=== PATIENT | female | born 1935 | race Caucasian/White ===

== ENCOUNTER 2017-07-23 16:00 | Inpatient (IN) | payer MEDICARE, BC ==
[~2017-07-23] VITALS: Ht 158.8 cm; Wt 53.0 kg
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
--- NOTE | ~2017-07-23 | CO ---
Unit #: [id number] #: [id number] Patient: DESIREE SILVA [id number] [address] [address] [id number] I MR#: [id number] NAME: DESIREE SILVA. ROOM: 306 Age: 82 Sex: F Admission Date: 07/26/2017 : 1935 Attending Physician: Rosalina Hamlin M.D. Primary Care Physician: Kaveh Diallo M.D. Consultation Date: 07/27/2017 CONSULTATION REPORT REASON FOR CONSULTATION Followup. DISCUSSION Ms. Desiree Silva is an 82-year-old white female, seen in room 306, bed 1 on 07/27/2017. The patient dressed casually in hospital attire, lying comfortably in bed. The patient was somewhat anxious and nervous, but reports feeling much better with medication. The patient making progress. Denied any thoughts of harming self or others. Tolerating medication fairly well. The patient's vital signs; temperature 98.4, blood pressure 130/80, respirations 12, oxygen saturation 99%. REVIEW OF SYSTEMS Complete review of systems unremarkable. MENTAL STATUS EXAMINATION General appearance; the patient dressed casually, thin built. Attention span and concentration, fair. Speech, regular rate. Oriented in time, place, and person. Mood and affect, labile. Thought process, coherent. Thought content, the patient denied any thoughts of harming self or others or any agitation or any hallucination. Recent and remote memory, fair to slightly impaired. Language, fair. Fund of knowledge, fair. Insight and judgment, fair to slightly impaired. DIAGNOSES Psychiatric: Major neurocognitive disorder secondary to Alzheimer disease with behavioral disturbances, F02.81; major depressive disorder, recurrent, severe, F33.2; anxiety disorder, not otherwise specified, F40.01. ASSESSMENT AND PLAN 1. Supportive psychotherapy and psychoeducation provided to the patient. 2. Educated about benefits and side effects of medication and course and prognosis of illness. 3. Advised to continue with current medication. If needed, consider further adjustment of medication. Please feel free to call if any questions telephone #[phone]. Dictated by... Colt Rawls M.D. CARLOS MANUEL/isamar Unit #: [id number] #: [id number] Patient: DESIREE SILVA E TD: 07/28/2017 18:55 JOB #: [id number] CONSULTATION REPORT Page 1 of 1 X Colt Rawls MD CONSULTATION REPORT
--- NOTE | ~2017-07-23 | CT71 ---
[facility] A Service of [facility] RADIOLOGY TEXT RESULTS PATIENT: DESIREE SILVA LOCATION: [facility] 306- : [birth year] UNIT #: [id number] AGE: [address]: Rosalina Hamlin MD SEX: F ORDER DR: [id number] [facility] [address] [facility]. [place], [place] [address] [id number] I MR#: [id number] Acc #: [id number] NAME: DESIREE SILVA. : 1935 SEX: F STUDY DATE/TIME: 07/24/2017 13:14 UNIT: [address] ROOM: [facility] STUDY DESCRIPTION: CT Head Wo Contrast Attending Physician: Rosalina Hamlin M.D. Ordering Physician: Lam Goldsmith M.D. Primary Care Physician: Kaveh Diallo M.D. MEDICAL IMAGING REPORT This report is preliminary unless electronic signature is present EXAM CT head without contrast 07/24/2017 HISTORY 82-year-old female with headache and dizziness beginning today. COMPARISON None. TECHNIQUE Routine unenhanced axial images performed through the brain. This CT exam was performed with one or more of the following radiation dose reduction techniques: Automatic exposure control, adjustment of mA and/or kV according to patient size, and iterative reconstruction. FINDINGS No hemorrhage, acute infarction, mass lesion, or abnormal extraaxial fluid collection. No midline shift or focal mass effect. Ventricular system is normal in size and configuration. Remote right frontal lobe encephalomalacia. Mild chronic small vessel disease in the supratentorial white matter. No acute bony abnormality. Mild mucosal thickening right maxillary sinus. Visualized mastoid air cells are clear. IMPRESSION 1. No acute intracranial abnormality. 2. Remote right frontal lobe infarct and mild chronic small vessel disease. 3. Mild mucosal thickening right maxillary sinus. Dictated by... Dimitrios Loving M.D. [facility] A Service of [facility] RADIOLOGY TEXT RESULTS PATIENT: DESIREE SILVA LOCATION: [facility] 306- : 33 UNIT #: [id number] AGE: [address]: Rosalina Hamlin MD SEX: F ORDER DR: THIS IS AN ELECTRONICALLY VERIFIED REPORT Dimitrios Loving M.D. at 07/25/2017 10:38 AM NONA/phill TD: 07/25/2017 08:09 JOB #: [id number] MEDICAL IMAGING REPORT Page 1 of 1 COPY
--- NOTE | ~2017-07-23 | TH ---
Unit #: [id number] #: [id number] Patient: DESIREE SILVA [id number] [facility]. [address] [address] [id number] I MR#: [id number] NAME: DESIREE SILVA : 1935 SEX: F STUDY DATE/TIME: 07/25/2017 UNIT: C3A PCU ROOM: 306 STUDY DESCRIPTION: Attending Physician: Rosalina Hamlin M.D. Primary Care Physician: Kaveh Diallo M.D. CARDIOLOGY REPORT EXAM Lexiscan Cardiolite stress test, nuclear portion. PROCEDURE Using technetium 99m labeled Cardiolite, rest images were obtained. Next, 10.9 mCi of Cardiolite was injected. Images were obtained in horizontal and vertical long axis and short axis views. The stress portion of the test was canceled. The rest images showed normal perfusion. CONCLUSION 1. This is an incomplete stress test. 2. Stress portion of the test was canceled. 3. The rest images show normal perfusion. Dictated by... Xin Price TD: 07/25/2017 17:23 JOB #: [id number] CARDIOLOGY REPORT Page 1 of 1 X Carina Adams MD <ELECTRONICALLY SIGNED> 08/18/17 1524 CARDIOLOGY REPORT
--- NOTE | ~2017-07-23 | CO ---
Unit #: [id number] #: [id number] Patient: DESIREE SILVA [id number] [facility] [address] [facility]. [place], [place] [address] [id number] I MR#: [id number] NAME: DESIREE SILVA. ROOM: 306 Age: 82 Sex: F Admission Date: 07/26/2017 : 1935 Attending Physician: Rosalina Hamlin M.D. Primary Care Physician: Kaveh Diallo M.D. Consultation Date: 07/26/2017 CONSULTATION REPORT REASON FOR CONSULTATION Followup. DISCUSSION Ms. Desiree Silva is an 82-year-old white female, seen in room 306, bed 1 on 07/26/2017 at [facility]. The patient's family was at the bedside. The patient continues to have problem with severe anxiety, mood lability, diagnosed with dementia. The patient also has a history of depression and anxiety. The patient reports feeling better. Denied any thoughts of harming self or others. Denied any psychotic symptom, but severe anxiety. Vital signs; temperature 98.2, pulse rate 120, respirations 18, blood pressure 139/72, and oxygen saturation 90%. REVIEW OF SYSTEMS Complete review of systems unremarkable. MENTAL STATUS EXAMINATION General appearance; the patient dressed casually, somewhat restless, anxious. Attention span and concentration, fair. Speech was rapid in rate. Oriented in place and person. Mood and affect, labile. Thought process, circumstantial. Thought content, guarded and paranoid, but denied any thoughts of harming self or others. Recent and remote memory, fair to slightly impaired. Fund of knowledge, fair. Insight and judgment, fair to slightly impaired. DIAGNOSES 1. Major neurocognitive disorder secondary to Alzheimer disease with behavioral disturbances, F02.81. 2. Major depressive disorder, recurrent, severe, F33.2. 3. Anxiety disorder, not otherwise specified, F40.01. ASSESSMENT/PLAN 1. Supportive psychotherapy and psychoeducation provided to the patient. 2. Educated about benefits and side effects of medication and course and prognosis of illness. 3. Advised to continue with Zoloft, Ativan 0.5 mg t.i.d., Risperdal 0.5 mg b.i.d. If needed, consider further adjustment of medication. Please feel free to call if any question, telephone #[phone]. Dictated by... Xin Jordan/isamar Unit #: [id number] #: [id number] Patient: DESIREE SILVA TD: 07/26/2017 21:55 JOB #: [id number] CONSULTATION REPORT Page 1 of 1 X Colt Rawls MD X CONSULTATION REPORT
--- NOTE | ~2017-07-23 | HP ---
Unit #: [id number] #: [id number] Patient: DESIREE SILVA [address] [place] [address] [id number] I MR#: [id number] NAME: DESIREE SILVA. ROOM: 306 Age: 82 Sex: F Admission Date: 07/23/2017 : 1935 Attending Physician: Lam Goldsmith M.D. Primary Care Physician: Kaveh Diallo M.D. HISTORY AND PHYSICAL CHIEF COMPLAINT Chest pain, pain under the left breast. HISTORY OF PRESENT ILLNESS This is an 82-year-old female who has a past medical history of hypothyroid, diabetes, dyslipidemia, dementia, hypertension, arthritis, anxiety, history of stroke, TIA, glaucoma and osteoporosis. She was brought to [facility] emergency room with a chief complaint of having pain under the left breast which has been going on for the last three days. She has no nausea or vomiting. No diaphoresis. No palpitations. On workup she was found to have BUN 43, creatinine 1.8. She has never been here in the system. I could not find any previous creatinine or BUN. She was eventually admitted for acute kidney injury and chest pain on evaluation. Her two daughters are available at the bedside. Most of the information was obtained from them. She is a rather poor historian. As per the daughter, she has been complaining of three days of pain under the left breast. No fever. No chills. No cough. No other complaint. She has been complaining of pain all over, pain in the spine, back pain, neck pain. Besides that she denies any other complaint. PAST MEDICAL HISTORY 1. Hypothyroid. 2. Diabetes. 3. Dyslipidemia. 4. Dementia. 5. Hypertension. 6. Arthritis. 7. Anxiety. 8. History of stroke/TIA in 2016. 9. History of glaucoma. 10. Osteoporosis. PAST SURGICAL HISTORY 1. Hysterectomy. 2. History of bladder tuck. 3. Hemorrhoid surgery. SOCIAL HISTORY She does not smoke. She does not drink alcohol. No other illicit drug use. She lives at home alone. FAMILY HISTORY Mother has diabetes and coronary artery disease. Unit #: [id number] #: [id number] Patient: SILVA,AMALIA ALLERGIES Paroxetine, Paxil, codeine. HOME MEDICATIONS 1. Namenda XR 5 mg at bedtime. 2. Zoloft 100 mg daily. 3. Zocor 40 mg daily. 4. Ativan 1 mg 1 tablet b.i.d. 5. Lumigan eyedrops. 6. Aspirin 81 mg daily. 7. Atenolol 25 mg daily. 8. (1) 10 mg daily. 9. Synthroid 50 mcg daily. 10. Lisinopril 20 mg daily. REVIEW OF SYSTEMS Negative except as per history of present illness. PHYSICAL EXAMINATION GENERAL: Elderly female lying in the bed comfortably. Currently not in any distress. She is alert, awake and oriented times one only. VITALS: Currently temperature 98.9, heart rate 55, respiratory rate 16, blood pressure 147/82, oxygen 99% on room air. HEENT: Pupils equal and reactive to light and accommodation. Head is normocephalic, atraumatic. NECK: Supple. No jugular venous distension. LUNGS: Clear to auscultation. No rhonchi. No wheezing. HEART: S1 and S2. Regular rate and rhythm. No murmur. No gallop. ABDOMEN: Soft, nontender, nondistended. Bowel sounds positive. EXTREMITIES: Inspection normal. No cyanosis, clubbing or edema. NEUROLOGIC: Alert and oriented times one to two. Cranial nerves II through XII intact. No focal neurologic deficits. Power 5/5 on both sides. PSYCHIATRIC: Normal mood and affect. SKIN: Warm and dry. DIAGNOSTIC STUDIES IMAGING: Chest x-ray normal. LABORATORY: Troponin less than 0.05. Chemistry, sodium 135, potassium 4.8, chloride 107, glucose 147, BUN 43, creatinine 1.8. LFTs within normal limits. INR 1. Troponin less than 0.05. White count 7, hemoglobin 11.5, hematocrit 32, platelets 137. ASSESSMENT/PLAN 1. Atypical chest pain under the left breast for three days. She is a poor historian. Will do two cardiac enzymes. If negative, will get one enzyme check in the morning. Schedule for nuclear test. Cardiology, Dr. Aquino, to see. 2. Acute kidney injury. Questionable BUN and creatinine in the past. I will give some IV fluids and monitor closely and repeat electrolytes in the morning. 3. Hypothyroid. Continue Synthroid. Recheck TSH. 4. Diabetes. Currently on diet. Place on sliding scale. 5. History of dyslipidemia. 6. Dementia. 7. Hypertension. 8. Arthritis. Unit #: [id number] #: [id number] Patient: DESIREE SILVA 9. Anxiety. 10. History of stroke, TIA in 2015. 11. History of glaucoma. 12. Osteoporosis. 13. DVT prophylaxis. Will place the patient on renal dose Lovenox. Dictated by Xin Cazares TD: 07/24/2017 07:52 JOB #: [id number] HISTORY AND PHYSICAL Page 1 of 1 X X HISTORY AND PHYSICAL
--- NOTE | ~2017-07-23 | EKG ---
PATIENT: DESIREE SILVA UNIT #: [id number] Ventricular Rate: 57 BPM Atrial Rate: 57 BPM P-R Interval: 174 ms QRS Duration: 92 ms Q-T Interval: 438 ms QTC Calculation(Bezet): 426 ms P Enterprise: 45 degrees Calculated R Enterprise: -37 degrees Calculated T Enterprise: 12 degrees Diagnosis Line: Sinus bradycardia with sinus arrhythmia Diagnosis Line: Left axis deviation Diagnosis Line: Minimal voltage criteria for LVH, may be normal Diagnosis Line: variant Diagnosis Line: Abnormal ECG Diagnosis Line: No previous ECGs available Diagnosis Line: Confirmed by LILLY EDEN MD ([id number]) on Diagnosis Line: 07/27/2017 11:10:17 PM INTERPRETING MD: AAMIR
--- NOTE | ~2017-07-23 | CR72 ---
[facility] A Service of [facility] RADIOLOGY TEXT RESULTS PATIENT: DESIREE SILVA LOCATION: [facility] 306-01 : 33 UNIT #: [id number] AGE: [address]: Lam Goldsmith MD SEX: F ORDER DR: [id number] [address] [address] [id number] MR#: [id number] Acc #: [id number] NAME: DESIREE SILVA. : 1935 SEX: F STUDY DATE/TIME: 07/23/2017 16:26 UNIT: SED ROOM: STUDY DESCRIPTION: CR Chest Single View Portable Attending Physician: Destin Santos M.D. Ordering Physician: Destin Santos M.D. Primary Care Physician: Kaveh Diallo M.D. MEDICAL IMAGING REPORT This report is preliminary unless electronic signature is present. EXAM Single view of the chest, 07/23/2017 COMPARISON None HISTORY Chest pain for three days. FINDINGS Single view of the chest was obtained. Given the differences in technique, there is no significant acute cardiopulmonary disease. Poor inspiratory film. No significant destructive abnormality in the bones. Dictated by... Magdiel Banuelos M.D. THIS IS AN ELECTRONICALLY VERIFIED REPORT Magdiel Banuelos M.D. at 07/24/2017 9:16 PM CPR/dorita TD: 07/24/2017 17:01 JOB #: [id number] MEDICAL IMAGING REPORT Page 1 of 1
--- NOTE | ~2017-07-23 | EKG ---
PATIENT: DESIREE SILVA UNIT #: [id number] Ventricular Rate: 57 BPM Atrial Rate: 57 BPM P-R Interval: 166 ms QRS Duration: 76 ms Q-T Interval: 434 ms QTC Calculation(Bezet): 422 ms P Henderson: 48 degrees Calculated R Henderson: -39 degrees Calculated T Henderson: 9 degrees Diagnosis Line: Sinus bradycardia Diagnosis Line: Left axis deviation Diagnosis Line: Abnormal ECG Diagnosis Line: No previous ECGs available Diagnosis Line: Confirmed by LILLY EDEN MD ([id number]) on Diagnosis Line: 07/25/2017 4:58:16 PM INTERPRETING MD: AAMIR
--- NOTE | ~2017-07-23 | CO ---
Unit #: [id number] #: [id number] Patient: DESIREE SILVA [id number] [address] [address] [id number] I MR#: [id number] NAME: DESIREE SILVA. ROOM: 306 Age: 82 Sex: F Admission Date: 07/26/2017 : 1935 Attending Physician: Rosalina Hamlin M.D. Primary Care Physician: Kaveh Diallo M.D. Consultation Date: 07/29/2017 CONSULTATION REPORT REASON FOR CONSULTATION Followup. DISCUSSION Ms. Desiree Silva is an 82-year-old white female, seen in room 306, bed 1 on 07/29/2017. The patient is a pleasant cooperative, somewhat anxious, but reports sleeping good. Medication is helping her. Vital signs; temperature 97.3, pulse 57, respirations 16, blood pressure 110/51, and oxygen saturation 100%. The patient will be going to [facility] for further treatment and rehab. The patient is still having problem with confusion and some problem with memory, but no agitation. Tolerating medication fairly well. REVIEW OF SYSTEMS Complete review of system is unremarkable. MENTAL STATUS EXAMINATION Vital signs, please see above. General appearance; the patient dressed casually. Attention span and concentration, fair to poor. Speech, slow in volume. Oriented in place and person. Mood and affect; anxious, labile. Thought process, circumstantial. Thought content; guarded, paranoid, but denied any thoughts of harming self or others. Recent remote memory, fair to slightly impaired. Language, fair. Fund of knowledge, fair. Insight and judgment, fair to slightly impaired. DIAGNOSES Psychiatric: Major neurocognitive disorder secondary to Alzheimer disease with behavioral disturbances, F02.81; major depressive disorder, recurrent, severe, F33.2; anxiety disorder, not otherwise specified, F40.01. ASSESSMENT/PLAN 1. Supportive psychotherapy and psychoeducation provided to the patient. 2. Educated about benefits and side effects of medication and course and prognosis of illness. 3. Advised to continue with current combination of medication. If needed, consider further adjustment of medication. Please feel free to call if any question, telephone #[phone]. Dictated by... Colt Rawls M.D. CARLOS MANUEL/isamar Unit #: [id number] #: [id number] Patient: DESIREE SILVA TD: 07/29/2017 17:31 JOB #: [id number] CONSULTATION REPORT Page 1 of 1 X Colt Rawls MD CONSULTATION REPORT
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
--- NOTE | ~2017-07-23 | CO ---
Unit #: [id number] #: [id number] Patient: DESIREE SILVA [id number] [facility] [address] [facility]. [place], [place] [address] [id number] I MR#: [id number] NAME: DESIREE SILVA. ROOM: 306 Age: 82 Sex: F Admission Date: 07/23/2017 : 1935 Attending Physician: Rosalina Hamlin M.D. Primary Care Physician: Kaveh Diallo M.D. Consultation Date: 07/24/2017 CONSULTATION REPORT REASON FOR CONSULTATION Severe anxiety, depression, and paranoia. HISTORY OF PRESENT ILLNESS Ms. Desiree Silva is an 82-year-old white female, seen in room 306, on 07/24/2017 at [facility]. The patient dressed casually, lying comfortably in bed, seemed somewhat anxious and nervous. The patient's sisters were at the bedside. The patient has a history of depression and anxiety and having increasing problem with the anxiety. In the hospital, the patient was unable to go for the test, also diagnosed with dementia on Namenda and Aricept. The patient according to the family was living by herself. The patient was unable to give any reliable information due to severe anxiety and agitation. The patient denied any thoughts of harming self or others, but somewhat guarded and paranoid. The patient's vital signs; temperature 98.1, pulse 78, respirations 16, blood pressure 169/78, and oxygen saturation 100%. PAST PSYCHIATRIC HISTORY Remarkable for history of dementia, anxiety, depression. Currently on medication. MEDICAL HISTORY The patient has a history of hypothyroidism, diabetes, dyslipidemia, dementia, hypertension, arthritis, anxiety, history of stroke, TIA, glaucoma, osteoporosis. MEDICATION HISTORY The patient is on Namenda XR, Zoloft 100 mg daily, Zocor, Ativan 1 mg b.i.d., aspirin, atenolol, Synthroid, and lisinopril. ALLERGIES Paxil, codeine. FAMILY HISTORY AND SOCIAL HISTORY The patient has a good support system, but lives by herself. No history of abuse. No history of any substance abuse. REVIEW OF SYSTEMS Complete review of system is unremarkable except as mentioned above. MENTAL STATUS EXAMINATION Vital signs; temperature 98.1, pulse 78, respirations 16, blood pressure 169/78, and oxygen saturation 100%. General appearance; the patient dressed casually, lying comfortably in bed, seemed somewhat anxious, Unit #: [id number] #: [id number] Patient: DESIREE SILVA nervous, and restless. Attention span and concentration, poor. Speech, somewhat loud. Oriented in self and place. Mood and affect, labile. Thought process, circumstantial. Thought content, guarded, paranoid, and severe anxiety, but denied any thoughts of harming self or others. Recent and remote memory, fair to slightly impaired. Language, fair. Fund of knowledge, fair. Insight and judgment, fair to slightly impaired. 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 ASSESSMENT/PLAN 1. Supportive psychotherapy and psychoeducation provided to the patient and family. 2. Educated about benefits and side effects of medication and course and prognosis of illness. 3. Recommending at this time to cut back on the dosage of Zoloft to 50 mg at bedtime. Continue with Aricept and Namenda as advised. Advised to resume Ativan which is missing in her current medication list, which may be making her increasingly anxious. Recommending to add Ativan 0.5 mg t.i.d. The patient also recommending Risperdal 0.25 mg b.i.d. to help with paranoia, agitation, and severe anxiety. We will continue to follow. If needed, consider further adjustment of medication. Please feel free to call if any questions, telephone #[phone]. Dictated by... Xin Jordan/isamar TD: 07/25/2017 11:12 JOB #: [id number] CONSULTATION REPORT Page 1 of 1 X Colt Rawls MD CONSULTATION REPORT
[~2017-07-23 16:00] MED LIST: ACETAMINOPHEN PO; DONEPEZIL HCL10 M1 PO; GABAPENTIN300 M2 PO; JANUVIA PO; LORAZEPAM1 MG PO; MOBIC15 MG PO; NAMENDA10 MG PO; PRINIVIL40 MG PO; SERTRALINE HCL100 M1 PO; SIMVASTATIN40 MG PO; TENORMIN25 MG PO
[2017-07-23] MEDS ORDERED: ASPIRIN81 MG PO (16:19)
[2017-07-23] MEDS ORDERED: ATENOLOL25 MG PO (16:19)
[2017-07-23] MEDS ORDERED: LISINOPRIL20 MG PO (16:20)
[2017-07-23] MEDS ORDERED: SYNTHROID PO (16:20)
[2017-07-23] MEDS ORDERED: DONEPEZIL HCL10 MG PO (16:20)
[2017-07-23] MEDS ORDERED: ZOCOR PO (16:21)
[2017-07-23] MEDS ORDERED: NAMENDA XR28 MG PO ×2 (16:21→21:54)
[2017-07-23] MEDS ORDERED: ZOLOFT100 MG PO (16:21)
[2017-07-23 16:37] LABS: BASOPHIL% 0.6 % (0-2.5); DIFF IND NO; EOSINOPHIL% 0.6 % (0.0-7.0); HEMATOCRIT 32.5 % (35.0-45.0); HEMOGLOBIN 11.5 gm/dL (12.0-16.0); LYMPHOCYTE# 1.3 X10e3 (1.0-3.5); LYMPHOCYTE% 17.6 % (17.0-45.0); MEAN CELL VOLUME 86.8 FL (83-96); MEAN CORPUSCULAR HEMOGLOBIN 30.7 PG (28-34); MEAN CORPUSCULAR HGB CONC 35.4 g/dL (30-36); MEAN PLATELET VOLUME 8.2 FL (6.5-11.5); MONOCYTE# 0.7 X10e3 (0-1.0); MONOCYTE% 9.5 % (3.0-12.0); NEUTROPHIL# 5.2 X10e3 (1.5-7.1); NEUTROPHIL% 71.7 % (40-75); PLATELET COUNT 137 X10e3 (140-420); RED BLOOD COUNT 3.74 X10e (3.90-5.30); RED CELL DISTRIBUTION WIDTH 14.1 % (11.0-15.5); WHITE BLOOD COUNT 7.2 X10e3 (4.0-10.5)
[2017-07-23 16:42] LABS: POC - CKMB 1.5 ng/mL (0.0-7.9)
[2017-07-23 16:43] LABS: POC - TROPONIN <0.05 ng/mL (<=0.05)
[2017-07-23 16:45] LABS: PROTHROMBIN TIME (PATIENT) 11.4 SECONDS (9.5-12.4)
[2017-07-23 16:52] LABS: PARTIAL THROMBOPLASTIN TIME 28.5 SECONDS (25.6-38.1)
[2017-07-23 16:59] LABS: ALBUMIN SERUM 4.5 g/dL (3.5-5.0); BILIRUBIN,INDIRECT 0.2 mg/dL (0.0-0.9); BILIRUBIN,TOTAL 0.2 mg/dL (0.2-2.0); BUN/CREATININE RATIO 23.88; CALCIUM SERUM 8.6 mg/dL (8.4-10.2); CREATININE SERUM 1.8 mg/dL (0.6-1.4); GLOM FILT RATE Estimated 25.4 mL/min (>60); POTASSIUM 4.8 mmol/L (3.5-5.1); PROTEIN TOTAL SERUM 7.3 g/dL (6.0-8.3)
[2017-07-23 18:19] LABS: POC - TROPONIN <0.05 ng/mL (<=0.05)
[2017-07-23] MEDS ORDERED: ATIVAN0.5 M1 PO (21:49)
[2017-07-23] MEDS ORDERED: LUMIGAN2.5 ML OU (21:52)
[2017-07-24 05:52] LABS: BASOPHIL% 0.6 % (0-2.5); EOSINOPHIL# 0.1 X10e3 (0-0.7); EOSINOPHIL% 0.9 % (0.0-7.0); HEMOGLOBIN 10.8 gm/dL (12.0-16.0); LYMPHOCYTE# 1.3 X10e3 (1.0-3.5); LYMPHOCYTE% 20.7 % (17.0-45.0); MEAN CELL VOLUME 86.5 FL (83-96); MEAN CORPUSCULAR HEMOGLOBIN 29.1 PG (28-34); MEAN CORPUSCULAR HGB CONC 33.6 g/dL (30-36); MEAN PLATELET VOLUME 8.3 FL (6.5-11.5); MONOCYTE# 0.7 X10e3 (0-1.0); MONOCYTE% 11.2 % (3.0-12.0); NEUTROPHIL# 4.1 X10e3 (1.5-7.1); NEUTROPHIL% 66.6 % (40-75); PLATELET COUNT 110 X10e3 (140-420); RED CELL DISTRIBUTION WIDTH 13.6 % (11.0-15.5); WHITE BLOOD COUNT 6.1 X10e3 (4.0-10.5)
[2017-07-24 05:57] LABS: DIFF IND NO
[2017-07-25 08:38] LABS: HEMATOCRIT 33.1 % (35.0-45.0); HEMOGLOBIN 10.9 gm/dL (12.0-16.0); MEAN CELL VOLUME 87.8 FL (83-96); MEAN CORPUSCULAR HEMOGLOBIN 28.9 PG (28-34); MEAN CORPUSCULAR HGB CONC 32.9 g/dL (30-36); MEAN PLATELET VOLUME 8.2 FL (6.5-11.5); RED BLOOD COUNT 3.77 X10e (3.90-5.30); RED CELL DISTRIBUTION WIDTH 14.1 % (11.0-15.5); WHITE BLOOD COUNT 7.3 X10e3 (4.0-10.5)
[2017-07-25 09:19] LABS: BUN/CREATININE RATIO 22.5; CREATININE SERUM 1.2 mg/dL (0.6-1.4); GLOM FILT RATE Estimated 41.5 mL/min (>60); MAGNESIUM 2.2 mg/dL (1.6-3.0); POTASSIUM 5.3 mmol/L (3.5-5.1)
[2017-07-25 13:12] LABS: CHOLESTEROL 139 mg/dL (0-200); HDL CHOLESTEROL 41 mg/dL (35-95); LDL CHOLESTEROL 55 mg/dL (-130); LDL/HDL RATIO 1 RATIO (0-4); TRIGLYCERIDES 217 mg/dL (10-160)
[2017-07-26 06:07] LABS: HEMOGLOBIN 11.1 gm/dL (12.0-16.0); MEAN CELL VOLUME 86.4 FL (83-96); MEAN CORPUSCULAR HEMOGLOBIN 28.9 PG (28-34); MEAN CORPUSCULAR HGB CONC 33.5 g/dL (30-36); MEAN PLATELET VOLUME 8.2 FL (6.5-11.5); RED BLOOD COUNT 3.83 X10e (3.90-5.30); RED CELL DISTRIBUTION WIDTH 13.7 % (11.0-15.5); WHITE BLOOD COUNT 6.6 X10e3 (4.0-10.5)
[2017-07-26 06:18] LABS: URINE APPEARANCE CLEAR; URINE BILIRUBIN NEG (NEG); URINE BLOOD NEG (NEG); URINE COLOR YELLOW; URINE GLUCOSE NEG (NEG); URINE KETONE NEG (NEG); URINE LEUKOCYTE ESTERASE 2+ (NEG); URINE NITRATE NEG (NEG); URINE PROTEIN TRACE (NEG); URINE SPECIFIC GRAVITY 1.008 (1.003-1.035); URINE UROBILINOGEN 0.2 MG/DL (NEG)
[2017-07-26 06:21] LABS: URBCS1 AUWI 0-2 /[HPF] (0-2); URINE BACTERIA AUWI 2+ (NEGATIVE); URINE SQUAMOUS EPITHELIAL CELL NONE SEEN /[HPF]; UWBCS1 AUWI 25-50 (0-5)
[2017-07-26 06:50] LABS: BUN/CREATININE RATIO 20.83; CALCIUM SERUM 8.2 mg/dL (8.4-10.2); CREATININE SERUM 1.2 mg/dL (0.6-1.4); GLOM FILT RATE Estimated 41.5 mL/min (>60); POTASSIUM 4.9 mmol/L (3.5-5.1)
[2017-07-27 05:45] LABS: HEMATOCRIT 32.7 % (35.0-45.0); HEMOGLOBIN 10.9 gm/dL (12.0-16.0); MEAN CELL VOLUME 86.7 FL (83-96); MEAN CORPUSCULAR HGB CONC 33.4 g/dL (30-36); MEAN PLATELET VOLUME 7.9 FL (6.5-11.5); RED BLOOD COUNT 3.77 X10e (3.90-5.30); RED CELL DISTRIBUTION WIDTH 13.9 % (11.0-15.5); WHITE BLOOD COUNT 6.6 X10e3 (4.0-10.5)
[2017-07-27 06:18] LABS: GLOM FILT RATE Estimated 51.7 mL/min (>60); POTASSIUM 4.8 mmol/L (3.5-5.1)
[2017-07-29 07:30] LABS: BUN/CREATININE RATIO 31.53; CALCIUM SERUM 8.6 mg/dL (8.4-10.2); CREATININE SERUM 1.3 mg/dL (0.6-1.4); GLOM FILT RATE Estimated 37.6 mL/min (>60); POTASSIUM 5.1 mmol/L (3.5-5.1)
== END 2017-07-29 14:51 | DRG 683 ==
LOC: SED 16:00 → CEDOF 18:00 → C3A PCU 18:00 → SED 18:00 → C3A PCU 18:00 → SED 18:12 → C3A PCU 18:12 → CEDOF 18:12 → C3A PCU 21:20 → CEDOF 21:20 → C3A PCU 21:20 → CEDOF 07-26 11:17 → C3A PCU 07-29 14:51
PROVIDERS: Emergency Medicine; Internal Medicine; Internal Medicine Endocrinology, Diabetes & Metabolism
DX: N17.9 Acute kidney failure, unspecified (principal); N39.0 Urinary tract infection, site not specified; E87.2 Acidosis; F33.2 Major depressive disorder, recurrent severe without psychotic features; E11.65 Type 2 diabetes mellitus with hyperglycemia; G30.9 Alzheimer's disease, unspecified; F02.81 Dementia in other diseases classified elsewhere, unspecified severity, with behavioral disturbance; E87.5 Hyperkalemia; I95.1 Orthostatic hypotension; E03.9 Hypothyroidism, unspecified; M19.90 Unspecified osteoarthritis, unspecified site; E78.5 Hyperlipidemia, unspecified; M81.0 Age-related osteoporosis without current pathological fracture; I10 Essential (primary) hypertension; R07.89 Other chest pain; F41.9 Anxiety disorder, unspecified; R29.6 Repeated falls; Z88.5 Allergy status to narcotic agent; Z88.8 Allergy status to other drugs, medicaments and biological substances; Z90.710 Acquired absence of both cervix and uterus; Z86.73 Personal history of transient ischemic attack (TIA), and cerebral infarction without residual deficits
CPT/HCPCS: 36415; 70450; 71010; 78451; 80048; 80061; 80076; 81003; 82550; 82553; 82947; 83036; 83735; 83874; 84443; 84484; 85025; 85027; 85610; 85730; 93005; 93306; 94760; 97110; 97116; 97161; 97165; 97530; 97532; 97535; 99285; A9500; G8978-GP; G8979-GP; G8980-GP; G8987-GO; G8988-GO; J1650; J1815; J2270